=== PATIENT | female | born 2000 | race Caucasian/White ===

== ENCOUNTER 2019-02-15 18:53 | Emergency (ER) | payer MEDICAID ==
[2019-02-15] MEDS ORDERED: Prochlorperazine 10 MG/2 ML SDV IVPUSH ONE (19:24)
[2019-02-15] MEDS ORDERED: Ketorolac 30 MG/ML SDV IVPUSH ONE (19:25)
[2019-02-15] MEDS ORDERED: Sodium Chloride 0.9% 10 ML Syringe FLUSH PRN (19:26)
[2019-02-15] MEDS ORDERED: cefTRIAXone 2 GM in Sodium Chloride 0.9% 50 ML IV ONE (19:26)
[2019-02-15] MEDS ORDERED: Sodium Chloride 0.9% 1,000 ML IV SCH ×2 (19:30→20:45)
--- NOTE | 2019-02-15 20:03 | EDM.PDOC ---
ED HPI GENERAL MEDICAL PROBLEM - General Chief Complaint: Genitourinary Problem Stated Complaint: UTI Time Seen by Provider: 02/15/19 19:25 Source of Information: Reports: Patient History Limitations: Reports: No Limitations - History of Present Illness INITIAL COMMENTS - FREE TEXT/NARRATIVE: 19 year old female present with her older sister for evaluation of fever, dysuria and back pain with fever. Patient was evaluated in clinic on Saturday and diagnosed with UTI and treated with Bactrim (she was told to take it for 3 days but has continued to take for a total of 8 dosing. 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 Patient has slept most of the day due to fatigue and malaise. Patient has slight nausea but no vomiting. She has had an intermittent sore throat with history of tonsillar stones. Patient is clearing her throat without cough. She noticed a rash involving the left upper arm today. Patient has taken Tylenol this am and Ibuprofen this afternoon. - Related Data Allergies Allergy/AdvReac Type Severity Reaction Status Date / Time No Known Allergies Allergy Verified 02/15/19 19:09 Home Meds: Home Meds Sulfamethoxazole/Trimethoprim [Sulfamethoxazole-Tmp Ds Tablet] 1 tab PO BID [History] Past Medical History - Past Health History Medical/Surgical History: Denies Medical/Surgical History Social & Family History - Tobacco Use Smoking Status *Q: Never Smoker ED ROS GENERAL - Review of Systems Review Of Systems: ROS reveals no pertinent complaints other than HPI. Constitutional: Reports: Fever, Chills, Malaise, Weakness, Fatigue, Night Sweats , Decreased Appetite HEENT: Reports: Throat Pain Respiratory: Reports: No Symptoms. Denies: Cough Cardiovascular: Reports: Lightheadedness Endocrine: Reports: Fatigue GI/Abdominal: Reports: Decreased Appetite, Nausea. Denies: Constipation, Diarrhea, Difficulty Swallowing, Distension, Vomiting : Reports: Dysuria, Frequency, Urgency Musculoskeletal: Reports: Back Pain, Muscle Pain, Muscle Stiffness (rash left forearm) Neurological: Reports: Headache. Denies: Confusion, Dizziness, Difficulty Walking, Gait Disturbance Psychiatric: Reports: No Symptoms Hematologic/Lymphatic: Reports: No Symptoms Immunologic: Reports: No Symptoms ED EXAM, GENERAL - Physical Exam Exam: See Below Exam Limited By: No Limitations General Appearance: Alert, WD/WN (pale diaphoretic and appears ill but nontoxic ) Eye Exam: Bilateral Eye: EOMI, PERRL Ears: Normal External Exam, Normal Canal, Hearing Grossly Normal, Normal TMs Nose: Normal Inspection, Normal Mucosa, No Blood Throat/Mouth: Normal Inspection, Normal Lips, Normal Teeth, Normal Gums, Normal Voice, No Airway Compromise. No: Normal Oropharynx (slight erythema noted) Head: Normocephalic Neck: Normal Inspection, Supple, Non-Tender, Full Range of Motion Respiratory/Chest: No Respiratory Distress, Lungs Clear, Normal Breath Sounds, No Accessory Muscle Use, Chest Non-Tender Cardiovascular: Normal Peripheral Pulses, Regular Rate, Rhythm (tachycardia), Tachycardia GI/Abdominal: Normal Bowel Sounds, Soft, Non-Tender, No Organomegaly (Female) Exam: Deferred Back Exam: Normal Inspection, Full Range of Motion. No: CVA Tenderness (R), CVA Tenderness (L) Extremities: Normal Inspection, Normal Range of Motion, Non-Tender, Normal Capillary Refill, No Pedal Edema Neurological: Alert, Oriented, CN II-XII Intact, Normal Cognition, Normal Gait, Normal Reflexes, No Motor/Sensory Deficits Psychiatric: Normal Affect, Normal Mood Skin Exam: Warm, Dry, Intact, Normal Color, No Rash, Cool (clammy), Diaphoretic Course - Vital Signs Last Recorded V/S: Last Vital Signs Temp 39.2 C H 02/15/19 19:14 Pulse 119 H 02/15/19 19:14 Resp 14 02/15/19 19:14 BP 104/50 L 02/15/19 19:14 Pulse Ox 98 02/15/19 19:14 - Orders/Labs/Meds Orders: Active Orders 24 hr Category Date Time Status Peripheral IV Care [RC] . DIRECTED Care 02/15/19 19:27 Active CULTURE BLOOD [BC] Urgent Lab 02/15/19 20:10 Received CULTURE BLOOD [] Urgent Lab 02/15/19 20:20 Received CULTURE STREP A CONFIRMATION [RM] Stat Lab 02/15/19 19:36 Results CULTURE URINE [] Stat Lab 02/15/19 19:30 Received EBV ACUTE INFECTION ANTIBODIES Stat Lab 02/15/19 20:38 Received LYMEAB(IGG/M)BABESIEHRLIC Routine Lab 02/15/19 21:00 Received STREP SCRN A RAPID W CULT CONF [] Stat Lab 02/15/19 19:36 Results Sodium Chloride 0.9% [Normal Saline] 1,000 ml [facility] 02/15/19 19:30 Active IV ASDIRECTED Sodium Chloride 0.9% [Normal Saline] 1,000 ml [facility] 02/15/19 20:45 Stop Req IV ASDIRECTED Sodium Chloride 0.9% [Saline Flush] [facility] 02/15/19 19:26 Active 10 ml FLUSH ASDIRECTED PRN Blood Culture x2 Reflex Set [OM.PC] Urgent Ot 02/15/19 20:10 Ordered Peripheral IV Insertion Adult [OM.PC] Urgent Ot 02/15/19 19:26 Ordered Medication Orders Sodium Chloride (Normal Saline) 1,000 mls @ 500 mls/hr IV ASDIRECTED JOHN Last Admin: 02/15/19 19:50 Dose: 500 mls/hr Sodium Chloride (Normal Saline) 1,000 mls @ 500 mls/hr IV ASDIRECTED JOHN Sodium Chloride (Saline Flush) 10 ml FLUSH ASDIRECTED PRN PRN Reason: Keep Vein Open Last Admin: 02/15/19 19:51 Dose: 10 ml Labs: Laboratory Tests 02/15/19 02/15/19 02/15/19 Range/Units 19:25 19:30 19:47 WBC 3.2 L (4.5-11.0) K/uL RBC 3.90 (3.30-5.50) M/uL Hgb 10.6 L (12.0-15.0) g/dL Hct 32.3 L (36.0-48.0) % MCV 83 (80-98) fL MCH 27 (27-31) pg MCHC 33 (32-36) % Plt Count 182 (150-400) K/uL Neut % (Auto) 61 (36-66) % Lymph % (Auto) 12 L (24-44) % Gilmer % (Auto) 5 (2-6) % Eos % (Auto) 22 H (2-4) % Baso % (Auto) 0 (0-1) % Sodium 133 L (140-148) mmol/L Potassium 3.6 (3.6-5.2) mmol/L Chloride 99 L (100-108) mmol/L Carbon Dioxide 23 (21-32) mmol/L Anion Gap 14.6 H (5.0-14.0) mmol/L BUN 8 (7-18) mg/dL Creatinine 1.0 (0.6-1.0) mg/dL Est Cr Clr Drug Dosing 80.32 mL/min Estimated GFR (MDRD) > 60 (>60) Glucose 110 H (74-106) mg/dL Lactic Acid (0.4-2.0) mmol/L Calcium 8.3 L (8.5-10.1) mg/dL Total Bilirubin 0.2 (0.2-1.0) mg/dL AST 20 (15-37) U/L ALT 26 (12-78) U/L Alkaline Phosphatase 43 L (46-116) U/L C-Reactive Protein (0.0-0.3) mg/dL Total Protein 6.8 (6.4-8.2) g/dL Albumin 3.4 (3.4-5.0) g/dL Globulin 3.4 (2.3-3.5) g/dL Albumin/Globulin Ratio 1.0 L (1.2-2.2) Lipase 97 (73-393) U/L Urine Color Yellow Urine Appearance Clear Urine pH 8.0 (4.5-8.0) Ur Specific [place] 1.015 (1.008-1.030) Urine Protein Negative (NEGATIVE) mg/dL Urine Glucose (UA) Normal (NEGATIVE) mg/dL Urine Ketones Negative (NEGATIVE) mg/dL Urine Occult Blood Negative (NEGATIVE) Urine Nitrite Negative (NEGATIVE) Urine Bilirubin Negative (NEGATIVE) Urine Urobilinogen Normal (NORMAL) mg/dL Ur Leukocyte Esterase Negative (NEGATIVE) Urine RBC 0-5 (0-5) Urine WBC 0-5 (0-5) Ur Epithelial Cells Few Amorphous Sediment Not seen Urine Bacteria Few Urine Mucus Not seen Monoscreen (NEGATIVE) 02/15/19 02/15/19 02/15/19 Range/Units 20:10 20:10 20:38 WBC (4.5-11.0) K/uL RBC (3.30-5.50) M/uL Hgb (12.0-15.0) g/dL Hct (36.0-48.0) % MCV (80-98) fL MCH (27-31) pg MCHC (32-36) % Plt Count (150-400) K/uL Neut % (Auto) (36-66) % Lymph % (Auto) (24-44) % Gilmer % (Auto) (2-6) % Eos % (Auto) (2-4) % Baso % (Auto) (0-1) % Sodium (140-148) mmol/L Potassium (3.6-5.2) mmol/L Chloride (100-108) mmol/L Carbon Dioxide (21-32) mmol/L Anion Gap (5.0-14.0) mmol/L BUN (7-18) mg/dL Creatinine (0.6-1.0) mg/dL Est Cr Clr Drug Dosing mL/min Estimated GFR (MDRD) (>60) Glucose (74-106) mg/dL Lactic Acid 1.0 (0.4-2.0) mmol/L Calcium (8.5-10.1) mg/dL Total Bilirubin (0.2-1.0) mg/dL AST (15-37) U/L ALT (12-78) U/L Alkaline Phosphatase (46-116) U/L C-Reactive Protein 4.55 H (0.0-0.3) mg/dL Total Protein (6.4-8.2) g/dL Albumin (3.4-5.0) g/dL Globulin (2.3-3.5) g/dL Albumin/Globulin Ratio (1.2-2.2) Lipase (73-393) U/L Urine Color Urine Appearance Urine pH (4.5-8.0) Ur Specific [place] (1.008-1.030) Urine Protein (NEGATIVE) mg/dL Urine Glucose (UA) (NEGATIVE) mg/dL Urine Ketones (NEGATIVE) mg/dL Urine Occult Blood (NEGATIVE) Urine Nitrite (NEGATIVE) Urine Bilirubin (NEGATIVE) Urine Urobilinogen (NORMAL) mg/dL Ur Leukocyte Esterase (NEGATIVE) Urine RBC (0-5) Urine WBC (0-5) Ur Epithelial Cells Amorphous Sediment Urine Bacteria Urine Mucus Monoscreen Negative (NEGATIVE) Meds: Medications Generic Name Dose Route Start Last Admin Trade Name Freq PRN Reason Stop Dose Admin Sodium Chloride 1,000 mls @ 500 mls/hr 02/15/19 19:30 02/15/19 19:50 Normal Saline IV 500 mls/hr ASDIRECTED JOHN Administration Sodium Chloride 1,000 mls @ 500 mls/hr 02/15/19 20:45 Normal Saline IV ASDIRECTED JOHN Sodium Chloride 10 ml 02/15/19 19:26 02/15/19 19:51 Saline Flush FLUSH 10 ml ASDIRECTED PRN Administration Keep Vein Open Discontinued Medications Generic Name Dose Route Start Last Admin Trade Name Maurice PRN Reason Stop Dose Admin Acetaminophen 650 mg 02/15/19 21:19 Tylenol PO 02/15/19 21:20 NOW ONE Ceftriaxone Sodium 2 gm/ 50 mls @ 100 mls/hr 02/15/19 19:26 02/15/19 19:51 Sodium Chloride IV 02/15/19 19:55 100 mls/hr ONETIME ONE Administration Ketorolac Tromethamine 30 mg 02/15/19 19:25 02/15/19 19:50 Toradol IVPUSH 02/15/19 19:26 30 mg ONETIME ONE Administration Prochlorperazine Edisylate 5 - 10 mg 02/15/19 19:24 02/15/19 19:52 Compazine IVPUSH 02/15/19 19:25 Not Given ONETIME ONE - Radiology Interpretation Free Text/Narrative:: CXR PA/LAT: - Re-Assessments/Exams Free Text/Narrative Re-Assessment/Exam: Patient and sister updated regarding Laboratory results and normal urine. Blood , Urine and Throat Cultures ordered and pending. I spoke with hospitalist regarding low WBC and laboratory studies. I will continue to work up patient with concern for viral illness, tick borne illness or serious bacterial infection. IV fluids running and symptoms improving at this time. 02/15/19 20:50 Free Text/Narrative Re-Assessment/Exam: CXR WNL. Discussed test results with mother and sister, viral vs tick borne illness or currently unknown bacterial infection. Called lab and requested Tick Borne panel by PCR ordered. No work for 72 hours after fever resolves, must be less than 101 without medications. Asked patient to follow-up with PCP in 2-5 days to ensure improving and review test results. Cultures will be monitored for up to 5 days. 02/15/19 21:36 Departure - Departure Time of Disposition: 21:43 Disposition: Home, Self-Care 01 Clinical Impression: Fever, Leukopenia, Eosinophil count raised - Discharge Information Instructions: Blood Culture Test, Fever, Adult, Leukocytosis, Ehrlichiosis and Anaplasmosis, Lyme Disease, Landy-Boss Virus Testing Referrals: Myron Benz MD [Primary Care Provider] - 3 Days (Call Saturday for recheck in 3-5 days and review pending test results. Clinic may call morning of or during appointment to ask for results for continueity of care) Forms: ED Department Discharge Additional Instructions: 1. Increased fluid intake. 2. Rest Sleep. No work until fever less than 102 for more than 72 hrs due to possible contagious nature of you illness. 3. Tylenol 500-1000mg every 6-8 hours for fever and pain. 4. Ibuprofen 600-800mg every 6-8 hours for fever, inflammation, pain body aches , swelling and fever with food. 5. Call PCP on Saturday for follow-up appointment in 3-5 days to review test results and discuss returning to work. 6. Note for work written, off until follow-up appointment or 72 hours after fever resolves. - My Orders Last 24 Hours: My Active Orders 02/15/19 19:26 Sodium Chloride 0.9% [Saline Flush] 10 ml FLUSH ASDIRECTED PRN Peripheral IV Insertion Adult [OM.PC] Urgent 02/15/19 19:27 Peripheral IV Care [RC] . DIRECTED 02/15/19 19:30 CULTURE URINE [RM] Stat Sodium Chloride 0.9% [Normal Saline] 1,000 ml IV ASDIRECTED 02/15/19 19:36 CULTURE STREP A CONFIRMATION [RM] Stat STREP SCRN A RAPID W CULT CONF [RM] Stat 02/15/19 20:10 CULTURE BLOOD [BC] Urgent Blood Culture x2 Reflex Set [OM.PC] Urgent 02/15/19 20:20 CULTURE BLOOD [BC] Urgent 02/15/19 20:38 EBV ACUTE INFECTION ANTIBODIES Stat 02/15/19 20:45 Sodium Chloride 0.9% [Normal Saline] 1,000 ml IV ASDIRECTED 02/15/19 21:00 LYMEAB(IGG/M)BABESIEHRLIC Routine - Assessment/Plan Last 24 Hours: My Active Orders 02/15/19 19:26 Sodium Chloride 0.9% [Saline Flush] 10 ml FLUSH ASDIRECTED PRN Peripheral IV Insertion Adult [OM.PC] Urgent 02/15/19 19:27 Peripheral IV Care [RC] . DIRECTED 02/15/19 19:30 CULTURE URINE [RM] Stat Sodium Chloride 0.9% [Normal Saline] 1,000 ml IV ASDIRECTED 02/15/19 19:36 CULTURE STREP A CONFIRMATION [RM] Stat STREP SCRN A RAPID W CULT CONF [RM] Stat 02/15/19 20:10 CULTURE BLOOD [BC] Urgent Blood Culture x2 Reflex Set [OM.PC] Urgent 02/15/19 20:20 CULTURE BLOOD [BC] Urgent 02/15/19 20:38 EBV ACUTE INFECTION ANTIBODIES Stat 02/15/19 20:45 Sodium Chloride 0.9% [Normal Saline] 1,000 ml IV ASDIRECTED 02/15/19 21:00 LYMEAB(IGG/M)BABESIEHRLIC Routine
[2019-02-15] MEDS ORDERED: Acetaminophen 325 MG Tab PO ONE (21:19)
--- NOTE | 2019-02-15 21:26 | CRLCR ---
HISTORY: Fever of unknown origin. TECHNIQUE: Two views of the chest. COMPARISON: No prior. FINDINGS: No lung infiltrate or pulmonary edema. No pneumothorax or pleural effusion. Cardiac size and pulmonary vasculature are within normal limits. Slight rightward curvature of the thoracic spine. IMPRESSION: No lung infiltrate. Dictated by Billy Benito MD @ 02/15/2019 9:24:29 PM Dictated by: Billy Benito MD @ 02/15/2019 21:24:32 (Electronically Signed)
[2019-02-18 17:08] LABS: BABESIA MICROTI IGG <1:10 (Neg:<1:10); BABESIA MICROTI IGM <1:10 (Neg:<1:10); E. CHAFFEENSIS (HME) IGG TITER Negative (Neg:<1:64); E. CHAFFEENSIS (HME) IGM TITER Negative (Neg:<1:20); HGE IGG TITER Negative (Neg:<1:64); HGE IGM TITER Negative (Neg:<1:20); LYME IGG/IGM AB <0.91 ISR (0.00-0.90)
[2019-02-18 21:07] LABS: EBV AB VCA, IGM <36.0 U/mL (0.0-35.9); EBV NUCLEAR ANTIGEN AB, IGG 75.2 U/mL (0.0-17.9)
== END 2019-02-15 22:31 | disposition home or self-care (01) ==
LOC: JP.ED 18:53
DX: D72.818 Other decreased white blood cell count (principal)
CPT/HCPCS: 36415; 71046; 80053; 81001; 83605; 83690; 85025; 86140; 86308; 86617; 86618; 86663; 86664; 86665; 86666; 86753; 87040; 87081; 87086; 87430; 87804; 96361; 96365; 96375; 99283; J0696; J1885; J7030; J7050

== ENCOUNTER 2021-05-07 13:46 | Emergency (ER) | payer MEDICAID ==
--- NOTE | 2021-05-07 15:06 | EDM.PDOC ---
ED HPI GENERAL MEDICAL PROBLEM - General Chief Complaint: [employer]CH[employer]ATE Problem Stated Complaint: POSSIBLE PROLAPSE Time Seen by Provider: 05/07/21 14:31 Source of Information: Reports: Patient History Limitations: Reports: No Limitations - History of Present Illness INITIAL COMMENTS - FREE TEXT/NARRATIVE: 21 yp female presents with concern of something wrong in her vagina. She was seen 2 days ago in clinic at that time heart tones were not identified. estimated 6-8 weeks into . She has had mild-moderate bloody vaginal discharge last evening she had increase in cramping with some clot passage. She was cleaning herself and felt a hard object in her vagina that was causing her concern. She is not lightheaded, nausea or fatigue. she is present today with her mother. Managing the grief of the loss as expected - Related Data Allergies Allergy/AdvReac Type Severity Reaction Status Date / Time No Known Allergies Allergy Verified 05/07/21 14:23 Home Meds: Home Meds NK [No Known Home Meds] 05/07/21 [History] Past Medical History - Past Health History Medical/Surgical History: Denies Medical/Surgical History Social & Family History - Tobacco Use Tobacco Use Status *Q: Never Tobacco User - Recreational Drug Use Recreational Drug Use: No ED ROS GENERAL - Review of Systems Review Of Systems: See Below Constitutional: Denies: Fever, Chills Respiratory: Denies: Shortness of Breath Cardiovascular: Denies: Chest Pain GI/Abdominal: Reports: Abdominal Pain ED EXAM - Physical Exam Exam: See Below Exam Limited By: No Limitations General Appearance: Alert, WD/WN, No Apparent Distress Head: Atraumatic, Normocephalic Respiratory/Chest: No Respiratory Distress, Lungs Clear, Normal Breath Sounds. No: Crackles, Rhonchi, Wheezing Cardiovascular: No Murmur, Tachycardia GI/Abdominal Exam: Soft, Tender (mild suprapubic) (Female) Exam: Cervical Dilatation, Vaginal Bleeding (moderate) Course - Vital Signs Last Recorded V/S: Last Vital Signs Temp 36.8 C 05/07/21 14:24 Pulse 116 H 05/07/21 14:24 Resp 15 05/07/21 14:24 BP 142/80 H 05/07/21 14:24 Pulse Ox 100 05/07/21 14:24 Departure - Departure Time of Disposition: 15:02 Disposition: Home, Self-Care 01 Condition: Good Clinical Impression: Spontaneous - Discharge Information *PRESCRIPTION DRUG MONITORING PROGRAM REVIEWED*: Not Applicable *COPY OF PRESCRIPTION DRUG MONITORING REPORT IN PATIENT NIKKI: Not Applicable Instructions: Miscarriage Referrals: Myron Benz MD [Primary Care Provider] - Forms: ED Department Discharge Additional Instructions: activity as tolerated may take ibuprofen or tylenol or pain maintain fluid intake at least 64 ounces follow-up with ob as needed return to emergency room with light-headness, severe pain, or fever Sepsis Event Note (ED) - Evaluation Sepsis Screening Result: No Definite Risk - Focused Exam Vital Signs: Vital Signs Temp Pulse Resp BP Pulse Ox 05/07/21 14:24 36.8 C 116 H 15 142/80 H 100 05/07/21 14:18 36.8 C 116 H 15 142/80 H 100
== END 2021-05-07 15:20 | disposition home or self-care (01) ==
LOC: JP.ED 13:46
DX: O03.9 Complete or unspecified spontaneous abortion without complication (principal)
CPT/HCPCS: 99283

== ENCOUNTER 2022-02-28 05:27 | Inpatient (IN) | payer MEDICAID ==
[2022-02-28] MEDS ORDERED: Lactated Ringers 1,000 ML IV SCH (06:00)
[2022-02-28] MEDS ORDERED: Oxytocin 10 Units/1 ML SDV ONE (07:41)
[2022-02-28] MEDS ORDERED: ceFAZolin 1 GM Vial ONE (07:42)
[2022-02-28] MEDS ORDERED: Sodium Chloride 0.9% 10 ML ONE (07:42)
[2022-02-28] MEDS ORDERED: Lactated Ringers 1,000 ML ONE (07:47)
[2022-02-28] MEDS ORDERED: Ketorolac 30 MG/ML SDV ONE (08:28)
[2022-02-28] MEDS ORDERED: Naloxone 0.4 MG/ML SDV IVPUSH PRN ×2 (08:52→08:59)
[2022-02-28] MEDS ORDERED: ePHEDrine 50 MG/ML SDV IVPUSH PRN ×2 (08:52→08:59)
[2022-02-28] MEDS ORDERED: diphenhydrAMINE 50 MG/ML SDV IVPUSH PRN ×2 (08:52→08:59)
[2022-02-28] MEDS ORDERED: Sennosides 8.6 MG Tab PO PRN (08:59)
[2022-02-28] MEDS ORDERED: Ketorolac 30 MG/ML SDV IVPUSH SCH (10:00)
[2022-02-28] MEDS: Acetaminophen 500 MG Tab PO SCH ×3 (10:49→19:00)
[2022-02-28] MEDS ORDERED: Acetaminophen 325 MG Tab PO SCH (14:00)
[2022-02-28] MEDS ORDERED: Acetaminophen 500 MG Tab PO SCH (14:00)
[2022-02-28] MEDS ORDERED: oxyCODONE 5 MG Tab PO PRN (14:50)
[2022-02-28] MEDS: Ketorolac 30 MG/ML SDV IVPUSH SCH (19:00)
[2022-03-01] MEDS: Acetaminophen 500 MG Tab PO SCH ×2 (03:50→12:46)
[2022-03-01] MEDS: Ketorolac 30 MG/ML SDV IVPUSH SCH ×2 (03:50→12:46)
[2022-03-01] MEDS ORDERED: Ibuprofen 800 MG Tab PO PRN (08:59)
[2022-03-01] MEDS ORDERED: oxyCODONE 5 MG Tab PO PRN (08:59)
[2022-03-02] MEDS ORDERED: Ibuprofen 800 MG Tab PO PRN (10:00)
== END 2022-03-01 14:44 | disposition home or self-care (01) | DRG 788 ==
LOC: JP.SDS 05:27 → EDSTATUS 07:30 → UNDOADMIN 08:03 → JP.MS 08:03 → JP.SDSSCHI 08:03 → JP.MS 08:52
PROVIDERS: ADMIT Obstetrics & Gynecology; ATTEND Obstetrics & Gynecology
PROC: 10D00Z1 Extraction of Products of Conception, Low, Open Approach (ICD-10-PCS; principal; 2022-02-28)
DX: O32.1XX0 Maternal care for breech presentation, not applicable or unspecified (principal); Z3A.39 39 weeks gestation of pregnancy; Z37.0 Single live birth; Z79.82 Long term (current) use of aspirin; Z79.899 Other long term (current) drug therapy; Z98.890 Other specified postprocedural states; Z20.822 Contact with and (suspected) exposure to COVID-19
CPT/HCPCS: 36415; 80048; 80305-QW; 85027; 86850; 86900; 86901; A9270-GY; J0690; J1885; J2590; J3490; J7120; U0002